=== PATIENT | male | born 1980 | race African-American/Black ===

== ENCOUNTER 2016-06-26 14:19 | Emergency (ER) | payer SELFPAY ==
[~2016-06-26] VITALS: Ht 188 cm; Wt 62.0 kg
[~2016-06-26 14:19] MED LIST: BACT800T5 PO; CEPH500 PO; CEPH500C3 PO; LEVEMIR SQ; NEUR100C PO; NOVOLOGP2 SQ; NOVOLOGSS SQ
[2016-06-26 14:21] VITALS: BP 130/78; PULSE 76; RESP 24; TEMP 97.8; O2SAT 98
[2016-06-26] MEDS ORDERED: HUMALOG SQ ×3 (15:45→21:08)
[2016-06-26] MEDS ORDERED: SODIUM CHLOR 0.9% 1000 ML INJ 1,000 ML IV ONE ×2 (15:52→16:22)
[2016-06-26] MEDS ORDERED: INSULIN HUMAN REGULAR 1,000 UNITS/10 ML VIAL IVP ONE (16:00)
[2016-06-26] MEDS ORDERED: SODIUM CHLORIDE 0.9% FLUSH 5 ML FLUSH IVF PRN (16:00)
--- NOTE | 2016-06-26 16:03 | PD ---
HPI Chief Complaint: Diabetic Time Seen by Provider: 15:25 Travel History International Travel<30 days: No Contact w/Intl Traveler<30days: No Traveled to known affect area: No History of Present Illness HPI This patient complains of elevated blood sugars. He is an insulin-dependent diabetic that ran out of his insulin 3 days ago. Sugar is critically high at this point. He has general malaise and nausea. Symptoms are moderately severe. No alleviating factors. Duration 3 days. Patient frequently snorts cocaine and last use was yesterday. He has history of heavy alcohol use but not recently. PFSH Past Medical History Asthma: No Anxiety: Yes Depression: No Heart Rhythm Problems: No Cancer: No Cardiovascular Problems: Yes High Cholesterol: No Chemotherapy: No Chest Pain: No Congestive Heart Failure: No COPD: No Cerebrovascular Accident: No Diabetes: Yes Patient Takes Glucophage: No Diminished Hearing: No Endocrine: Yes Gastrointestinal Disorders: Yes (PANCREATITIS) Genitourinary: No Headaches: Yes Hypertension: Yes Immune Disorder: No Musculoskeletal: Yes Neurologic: Yes Psychiatric: No Reproductive: No Respiratory: No Immunizations Current: Yes Migraines: Yes Pancreatitis: Yes Radiation Therapy: No Seizures: Yes Sleep Apnea: No Thyroid Disease: No Tetanus Vaccination: < 5 Years Past Surgical History Abdominal Surgery: Yes (tami) Cardiac Surgery: No Cholecystectomy: Yes Coronary Stent: Yes Genitourinary Surgery: No Thoracic Surgery: No Other Surgery: Yes (pancreas stent) Social History Alcohol Use: No Tobacco Use: Yes (one pack per day) Substance Use: Yes (COCAINE) Allergies-Medications (Allergen,Severity, Reaction): Coded Allergies: No Known Allergies (Unverified , 06/26/16) Reported Meds & Prescriptions Reported Meds & Active Scripts Active Reported Humalog Inj (Insulin Human Lispro) 1,000 Unit/10 Ml Vial 12 Units SQ HS Max dose at bedtime:( )units; sugars < 70,(0)units; sugars 150-199,(2)units; sugars 200-249,(4)units; sugars 250-299,(7)units; sugars 300-349,(10)units; sugars more than 349,(12)units. Humalog Inj (Insulin Human Lispro) 1,000 Unit/10 Ml Vial 24 Units SQ DAILY Max dose at bedtime:( )units; sugars< 70,(0)units; sugars 150-199,(1)unit; sugars 200-249,(3)units; sugars 250-299,(5)units; sugars 300-349,(7)units; sugars more than 349,(9)units. Review of Systems General / Constitutional: No: Fever Eyes: No: Visual changes HENT: No: Headaches Cardiovascular: No: Chest Pain or Discomfort Respiratory: No: Shortness of Breath Gastrointestinal: Positive: Nausea, Diarrhea Genitourinary: No: Dysuria Musculoskeletal: No: Pain Skin: No Rash Neurologic: No: Weakness Psychiatric: No: Depression Endocrine: No: Polydipsia Hematologic/Lymphatic: No: Easy Bruising Physical Exam Narrative GENERAL: Thin well-developed patient with hyperglycemia and general malaise. SKIN: Warm and dry. HEAD: Atraumatic. Normocephalic. EYES: Pupils equal and round. No scleral icterus. No injection or drainage. ENT: No nasal bleeding or discharge. Mucous membranes pink and moist. NECK: Trachea midline. No JVD. CARDIOVASCULAR: Regular rate and rhythm. No murmur appreciated. RESPIRATORY: No accessory muscle use. Clear to auscultation. Breath sounds equal bilaterally. GASTROINTESTINAL: Abdomen soft, non-tender, nondistended. Hepatic and splenic margins not palpable. MUSCULOSKELETAL: No obvious deformities. No clubbing. No cyanosis. No edema. NEUROLOGICAL: Awake and alert. No obvious cranial nerve deficits. Motor grossly within normal limits. Normal speech. PSYCHIATRIC: Appropriate mood and affect; insight and judgment poor. Data Data Last Documented VS Vital Signs Date Time Temp Pulse Resp B/P Pulse Ox O2 Delivery O2 Flow Rate FiO2 06/26/16 14:21 97.8 76 24 130/78 98 Room Air Orders Electrocardiogram (06/26/16 15:52) Complete Blood Count With Diff (06/26/16 15:52) Comprehensive Metabolic Panel (06/26/16 15:52) Beta Hydroxybutyrate (Acetone) (06/26/16 15:52) Arterial Blood Gas (Abg) (06/26/16 15:52) Ecg Monitoring (06/26/16 15:52) Iv Access Insert/Monitor (06/26/16 15:52) Oximetry (06/26/16 15:52) NPO (06/26/16 15:52) Sodium Chlor 0.9% 1000 Ml Inj (Ns 1000 M (06/26/16 15:52) Sodium Chlor 0.9% 1000 Ml Inj (Ns 1000 M (06/26/16 16:22) Sodium Chloride 0.9% Flush (Ns Flush) (06/26/16 16:00) Insulin Human Regular Inj (Novolin R Inj (06/26/16 16:00) Labs Laboratory Tests Test 06/26/16 16:06 Blood Gas Puncture Site RT RADIAL Blood Gas Patient Temperature 98.6 Blood Gas HCO3 25 mmol/L Blood Gas Base Excess 1.0 mmol/L Blood Gas Oxygen Saturation 92 % Arterial Blood pH 7.46 Arterial Blood Partial 35 mmHg Pressure CO2 Arterial Blood Partial 115 mmHG Pressure O2 Arterial Blood Oxygen Content 16.4 Vol % Arterial Blood 4.3 % Carboxyhemoglobin Arterial Blood Methemoglobin 2.1 % Blood Gas Hemoglobin 12.5 G/DL Oxygen Delivery Device ROOM AIR MDM Medical Decision Making Medical Screen Exam Complete: Yes Emergency Medical Condition: Yes Medical Record Reviewed: Yes Differential Diagnosis DKA, hyperglycemia, noncompliance Narrative Course I have reviewed the patient's electronic medical record. Patient's been here many times over the last couple years for hyperglycemia IV placed I gave him 2 L normal saline IV bolus and 10 units IV regular insulin Accu-Chek is critical high ABG looks good with a pH of 7.46 Case checked out to the 5 PM physician to assist with disposition after workup complete. Perry Robbins MD Jun 26, 2016 16:03 complete. Perry Robbins MD Jun 26, 2016 16:03
[2016-06-26 16:10] LABS: BLOOD GAS CARBOXYHEMOGLOBIN 4.3 % (0-4); BLOOD GAS HCO3 25 mmol/L (22-26); BLOOD GAS METHEMOGLOBIN 2.1 % (0-2); BLOOD GAS O2 HGB SATURATION 92 % (90-100); BLOOD GAS OXYGEN CONTENT 16.4 Vol % (12.0-20.0); BLOOD GAS PCO2 35 mmHg (38-42); BLOOD GAS PO2 115 mmHG (61-120); BLOOD GAS TOTAL HGB 12.5 G/DL (12.0-16.0); CRITICAL VALUE NO; DRAW SITE RT RADIAL; NUMBER OF ARTERIAL PUNCTURES 1; OXYGEN DEVICE ROOM AIR; STAT YES; TEMP CORR TO 98.6; ULNAR PULSE PRESENT
--- NOTE | 2016-06-26 17:15 | PD ---
Data Data Last Documented VS Vital Signs Date Time Temp Pulse Resp B/P Pulse Ox O2 Delivery O2 Flow Rate FiO2 06/26/16 21:15 98.9 72 16 118/63 97 06/26/16 19:10 Room Air Orders Electrocardiogram (06/26/16 15:52) Complete Blood Count With Diff (06/26/16 15:52) Comprehensive Metabolic Panel (06/26/16 15:52) Beta Hydroxybutyrate (Acetone) (06/26/16 15:52) Arterial Blood Gas (Abg) (06/26/16 15:52) Ecg Monitoring (06/26/16 15:52) Iv Access Insert/Monitor (06/26/16 15:52) Oximetry (06/26/16 15:52) NPO (06/26/16 15:52) Sodium Chlor 0.9% 1000 Ml Inj (Ns 1000 M (06/26/16 15:52) Sodium Chlor 0.9% 1000 Ml Inj (Ns 1000 M (06/26/16 16:22) Sodium Chloride 0.9% Flush (Ns Flush) (06/26/16 16:00) Insulin Human Regular Inj (Novolin R Inj (06/26/16 16:00) Basic Metabolic Panel (Bmp) (06/26/16 19:47) Labs Laboratory Tests Test 06/26/16 06/26/16 06/26/16 16:06 17:10 20:00 Blood Gas Puncture Site RT RADIAL Blood Gas Patient Temperature 98.6 Blood Gas HCO3 25 mmol/L Blood Gas Base Excess 1.0 mmol/L Blood Gas Oxygen Saturation 92 % Arterial Blood pH 7.46 Arterial Blood Partial 35 mmHg Pressure CO2 Arterial Blood Partial 115 mmHG Pressure O2 Arterial Blood Oxygen Content 16.4 Vol % Arterial Blood 4.3 % Carboxyhemoglobin Arterial Blood Methemoglobin 2.1 % Blood Gas Hemoglobin 12.5 G/DL Oxygen Delivery Device ROOM AIR White Blood Count 8.4 TH/MM3 Red Blood Count 4.47 MIL/MM3 Hemoglobin 12.3 GM/DL Hematocrit 38.6 % Mean Corpuscular Volume 86.3 FL Mean Corpuscular Hemoglobin 27.6 PG Mean Corpuscular Hemoglobin 32.0 % Concent Red Cell Distribution Width 15.9 % Platelet Count 318 TH/MM3 Mean Platelet Volume 8.5 FL Neutrophils (%) (Auto) 70.5 % Lymphocytes (%) (Auto) 18.8 % Monocytes (%) (Auto) 10.0 % Eosinophils (%) (Auto) 0.4 % Basophils (%) (Auto) 0.3 % Neutrophils # (Auto) 5.9 TH/MM3 Lymphocytes # (Auto) 1.6 TH/MM3 Monocytes # (Auto) 0.8 TH/MM3 Eosinophils # (Auto) 0.0 TH/MM3 Basophils # (Auto) 0.0 TH/MM3 CBC Comment DIFF FINAL Differential Comment Sodium Level 131 MEQ/L 135 MEQ/L Potassium Level 6.1 MEQ/L 3.9 MEQ/L Chloride Level 99 MEQ/L 103 MEQ/L Carbon Dioxide Level 24.8 MEQ/L 24.3 MEQ/L Anion Gap 7 MEQ/L 8 MEQ/L Blood Urea Nitrogen 17 MG/DL 19 MG/DL Creatinine 1.84 MG/DL 1.08 MG/DL Estimat Glomerular Filtration 50 ML/MIN 93 ML/MIN Rate Random Glucose 805 MG/DL 361 MG/DL Calcium Level 8.8 MG/DL 8.1 MG/DL Total Bilirubin 0.5 MG/DL Aspartate Amino Transf 41 U/L (AST/SGOT) Alanine Aminotransferase 93 U/L (ALT/SGPT) Alkaline Phosphatase 223 U/L Total Protein 7.7 GM/DL Albumin 3.5 GM/DL B-Hydroxybutyrate 0.14 MMOL/L [facility] Supervised Visit with LANDON: No Narrative Course Patient care assumed from Dr. De León at 1700. Patient is a 35-year-old male with repeated presentations to this emergency department for hyperglycemia. Patient is been documented noncompliance with his insulin in the past. Ran out of his insulin 3 days ago and hasn't had any since. Blood sugars responding fairly well to insulin and normal saline. Is given 2 L normal saline and 10 units of insulin. His initial BMP shows an acute kidney injury with a creatinine of 1.8. His last 0.8. Potassium is 6.2. Review of his EKG shows normal sinus rhythm and normal axis normal R-wave progression. No concerning ST T changes. No changes consistent with hyperkalemia. We will recheck the patient's BMP and a first bonding well to fluids and insulin could conceivably be discharged. If not we'll consider observation status for acute kidney injury and hyperkalemia. Repeat labs show creatinine is much improved, potassium is now normal. Patient revisited and is sleeping soundly, on awakening him he states that he has been having a foot ulcer, this is reviewed and shows that appears to be healing well. There is no obvious signs of infection. I discussed with him need to follow with a primary care physician. I have refilled his insulin. I also discussed with him that he needs to control his blood sugar better otherwise he will end up on dialysis at some point. He is stable for discharge at this time. Diagnosis Primary Impression: Uncontrolled diabetes mellitus with hyperglycemia Qualified Code: E10.65 - Uncontrolled type 1 diabetes mellitus with hyperglycemia Med/Other Pt SpecificInfo: Prescription(s) given Scripts Insulin Lispro (Human) Inj (Humalog Inj)1,000 Unit/10 Ml Vial12 Units SQ HS #1 VIAL Ref 0 Max dose at bedtime:( )units; sugars < 70,(0)units; sugars 150-199,(2)units; sugars 200-249,(4)units; sugars 250-299,(7)units; sugars 300-349,(10)units; sugars more than 349,(12)units. Prov:Jas Valentino MD 06/26/16 Disposition: 01 DISCHARGE HOME Condition: Stable Jas Valentino MD Jun 26, 2016 17:15
[2016-06-26 17:35] LABS: AUTOMATED NEUTROPHIL # 5.9 TH/MM3 (1.8-7.7); BASOPHIL % 0.3 % (0.0-2.0); EOSINOPHIL % 0.4 % (0.0-4.0); HEMATOCRIT 38.6 % (39.0-51.0); HEMO FLAGS DIFF FINAL; LYMPH % 18.8 % (9.0-44.0); LYMPHOCYTE # 1.6 TH/MM3 (1.0-4.8); MEAN CELL VOLUME 86.3 FL (80.0-100.0); MEAN CORPUSCULAR HEMOGLOBIN 27.6 PG (27.0-34.0); NEUT % 70.5 % (16.0-70.0); PLATELET COUNT 318 TH/MM3 (150-450); RED BLOOD COUNT 4.47 MIL/MM3 (4.50-5.90); RED CELL DISTRIBUTION WIDTH 15.9 % (11.6-17.2); WHITE BLOOD COUNT 8.4 TH/MM3 (4.0-11.0)
[2016-06-26 18:05] LABS: ANION GAP 7 MEQ/L (5-15); AST (GOT) 41 U/L (15-37); BICARBONATE 24.8 MEQ/L (21.0-32.0); BLOOD UREA NITROGEN 17 MG/DL (7-18); CHLORIDE 99 MEQ/L (98-107); GLOMERULAR FILTRATION RATE 50 ML/MIN (>89); POTASSIUM 6.1 MEQ/L (3.5-5.1); SODIUM (NA) 131 MEQ/L (136-145)
[2016-06-26 18:25] LABS: ALKALINE PHOSPHATASE 223 U/L (45-117); ALT (GPT) 93 U/L (12-78); BETA-HYDROXYBUTYRATE 0.14 MMOL/L (0.00-0.39); TOTAL BILIRUBIN ADULT 0.5 MG/DL (0.2-1.0)
[2016-06-26 19:10] VITALS: BP 105/64; PULSE 67; RESP 16; TEMP 98.4; O2SAT 97
[2016-06-26 20:59] LABS: BICARBONATE 24.3 MEQ/L (21.0-32.0); POTASSIUM 3.9 MEQ/L (3.5-5.1)
[2016-06-26 21:15] VITALS: BP 118/63; TEMP 98.9
--- NOTE | 2016-06-28 13:27 | EKG ---
Date Performed: 06/26/2016 Time Performed: 17:32:10 PTAGE: 35 years EKG: Sinus rhythm WITH SINUS ARRHYTHMIA SEPTAL MYOCARDIAL INFARCTION Since previous tracing, no significant change not ed ABNORMAL ECG PREVIOUS TRACING : 01/19/2016 20.20 DOCTOR: Liz Chaudhary Interpretating Date/Time 06/28/2016 13:26:36
== END 2016-06-26 21:37 | disposition home or self-care (01) ==
LOC: NEPD 14:19 → NEPA 21:37
DX: E10.65 Type 1 diabetes mellitus with hyperglycemia (principal); R53.81 Other malaise; R11.0 Nausea; R94.31 Abnormal electrocardiogram [ECG] [EKG]; I10 Essential (primary) hypertension; F17.200 Nicotine dependence, unspecified, uncomplicated; Z79.4 Long term (current) use of insulin; Z86.59 Personal history of other mental and behavioral disorders; Z86.79 Personal history of other diseases of the circulatory system; Z87.19 Personal history of other diseases of the digestive system; Z87.39 Personal history of other diseases of the musculoskeletal system and connective tissue; Z86.69 Personal history of other diseases of the nervous system and sense organs
CPT/HCPCS: 36600; 80048; 80053; 82010; 82805; 85025; 93005; 96361; 96374; 99284; J1815; J7030